=== PATIENT | male | born 1935 | race Asian ===

== ENCOUNTER → 2016-10-02 | Outpatient (CLI) | payer OTHER, MEDICAID ==
[~2016-10-02] MED LIST: OMEP10 PO; SIMV-259 PO; TERA2 PO; TRAM50TA4 PO
== END | disposition home or self-care (01) ==
LOC: RADPV 11:29
PROVIDERS: ATTEND Internal Medicine
DX: I70.0 Atherosclerosis of aorta (principal); J84.89 Other specified interstitial pulmonary diseases
CPT/HCPCS: 71020

== ENCOUNTER 2020-02-09 12:20 | Inpatient (IN) | payer MEDICAID, MEDICARE, OTHER ==
[~2020-02-09] VITALS: Ht 154.9 cm; Wt 49.5 kg
[~2020-02-09 12:20] MED LIST changes: -TERA2 PO; +TERA2CAP10 PO
[2020-02-09 13:19] LABS: BASOPHILS % (AUTO) 0.1 % (0.0-2.0); EOSINOPHILS % (AUTO) 0 % (1.0-6.0); HEMATOCRIT 40.9 % (41-53); HEMOGLOBIN 12.9 g/dL (13.5-17.5); LYMPHOCYTES # (AUTO) 0.5 K/uL (1.0-4.8); LYMPHOCYTES % (AUTO) 5.8 % (22.0-44.0); MEAN CORPUSCULAR HEMOGLOBIN 21.6 pg (26.0-34.0); MEAN CORPUSCULAR HGB CONC 31.6 G/dL (31.0-37.0); MEAN CORPUSCULAR VOLUME 69 fL (80-100); MONOCYTES # (AUTO) 0.6 K/uL (0.1-1.0); MONOCYTES % (AUTO) 6.4 % (2.0-9.0); NEUTROPHILS # (AUTO) 8.4 K/uL (1.8-7.7); PLATELET COUNT (AUTO) 125 K/uL (150-450); RED BLOOD CELL COUNT(AUTO) 5.97 MIL/uL (4.50-5.90); RED CELL DISTRIBUTION WIDTH 16.2 % (11.5-14.5)
[2020-02-09 13:20] LABS: NEUTROPHILS % (AUTO) 87.7 % (40.0-70.0)
[2020-02-09 13:28] LABS: CALCIUM, TOTAL 9.2 mg/dL (8.8-10.5); CREATININE 1.64 mg/dL (0.60-1.30); POTASSIUM 4.3 mmol/L (3.5-5.1)
[2020-02-09 13:34] LABS: ALBUMIN 4.2 g/dL (3.4-5.0); BILIRUBIN,TOTAL 1.2 mg/dL (0.1-1.0)
[2020-02-09] MEDS ORDERED: ACETAMINOPHEN 325 MG TABLET PO ONE (14:15)
[2020-02-09] MEDS ORDERED: ASPIRIN 81 MG CHEWABLE TABLET PO ONE (14:15)
[2020-02-09] MEDS ORDERED: NITROGLYCERIN 2% (1 GM=INCH) PACKET TP ONE (14:30)
[2020-02-09] MEDS ORDERED: HEPARIN SODIUM 25000 UNITS/D5W 250 ML IV PRN (14:39)
[2020-02-09] MEDS ORDERED: METOPROLOL SUCCINATE 25 MG ER TABLET PO ONE (14:45)
[2020-02-09] MEDS ORDERED: ATORVASTATIN CALCIUM 40 MG TABLET PO ONE (14:45)
[2020-02-09] MEDS ORDERED: HEPARIN SODIUM,PORCINE 5,000 UNITS/ML VIAL IVP PRN ×2 (14:45)
[2020-02-09] MEDS ORDERED: HEPARIN SODIUM,PORCINE 5,000 UNITS/ML VIAL IVP ONE (14:45)
[2020-02-09 16:13] LABS: LACTIC ACID 2.1 mmol/L (0.4-2.0)
[2020-02-09 16:25] LABS: C-REACTIVE PROTEIN QUANT 1.67 mg/dL (0.00-0.30); FERRITIN 591 ng/mL (26-388); LACTATE DEHYDROGENASE 280 U/L (85-227)
[2020-02-09 16:31] LABS: CREATINE KINASE, TOTAL ONLY 2231 U/L (39-308); D-DIMER 17.71 mg/L FEU (0.00-0.50)
[2020-02-09 16:33] LABS: PROTHROMBIN TIME 10.2 SEC (9.4-11.6)
[2020-02-09] MEDS ORDERED: SODIUM CHLORIDE 0.9% 1,350 ML IV ONE (16:33)
[2020-02-09] MEDS ORDERED: CefTRIAXone 1 GM/DEXTROSE 50 ML IV ONE (16:45)
[2020-02-09] MEDS ORDERED: AZITHROMYCIN 500 MG/NS 250 ML IV ONE (16:45)
[2020-02-09] MEDS ORDERED: 0.9% SODIUM CHLORIDE 10 ML SYRINGE IVP PRN (18:00)
[2020-02-09] MEDS ORDERED: TERA2CAP PO (18:12)
[2020-02-09] MEDS ORDERED: OMEP40CA12 PO (18:12)
[2020-02-09] MEDS ORDERED: OXYB5 PO (18:12)
[2020-02-09] MEDS ORDERED: LEVO5TAB13 PO (18:12)
[2020-02-10 03:00] LABS: BASOPHILS % (AUTO) 0.2 % (0.0-2.0); EOSINOPHILS % (AUTO) 0.2 % (1.0-6.0); HEMATOCRIT 34.6 % (41-53); HEMOGLOBIN 10.9 g/dL (13.5-17.5); LYMPHOCYTES # (AUTO) 0.9 K/uL (1.0-4.8); LYMPHOCYTES % (AUTO) 11.4 % (22.0-44.0); MEAN CORPUSCULAR HEMOGLOBIN 21.7 pg (26.0-34.0); MEAN CORPUSCULAR HGB CONC 31.5 G/dL (31.0-37.0); MEAN CORPUSCULAR VOLUME 69 fL (80-100); MONOCYTES # (AUTO) 0.6 K/uL (0.1-1.0); MONOCYTES % (AUTO) 8.2 % (2.0-9.0); NEUTROPHILS # (AUTO) 6.3 K/uL (1.8-7.7); RED BLOOD CELL COUNT(AUTO) 5.01 MIL/uL (4.50-5.90); RED CELL DISTRIBUTION WIDTH 16.1 % (11.5-14.5)
[2020-02-10 03:08] LABS: ALBUMIN 3.2 g/dL (3.4-5.0); BILIRUBIN,TOTAL 1.2 mg/dL (0.1-1.0); CALCIUM, TOTAL 8.3 mg/dL (8.8-10.5); CREATININE 1.59 mg/dL (0.60-1.30); POTASSIUM 4.1 mmol/L (3.5-5.1); TOTAL PROTEIN, SERUM 6.3 g/dL (6.4-8.2)
[2020-02-10 03:24] LABS: PLATELET COUNT (AUTO) 93 K/uL (150-450)
[2020-02-10] MEDS ORDERED: ATORVASTATIN CALCIUM 10 MG TABLET PO SCH (09:00)
[2020-02-10] MEDS ORDERED: METOPROLOL SUCCINATE 25 MG ER TABLET PO SCH (09:00)
[2020-02-10] MEDS: ASPIRIN 81 MG CHEWABLE TABLET PO SCH (09:13)
[2020-02-10] MEDS: METOPROLOL SUCCINATE 25 MG ER TABLET PO SCH ×2 (09:14→21:33)
[2020-02-10] MEDS ORDERED: ATORVASTATIN CALCIUM 20 MG TABLET PO ONE (09:15)
[2020-02-10 23:01] VITALS: BP 147/79
[2020-02-11] VITALS (29 sets, daily range): BP systolic 113–169; BP diastolic 59–89
[2020-02-11 06:41] LABS: BASOPHILS % (AUTO) 0.2 % (0.0-2.0); EOSINOPHILS % (AUTO) 0.3 % (1.0-6.0); HEMATOCRIT 36.7 % (41-53); HEMOGLOBIN 11.3 g/dL (13.5-17.5); LYMPHOCYTES # (AUTO) 1.2 K/uL (1.0-4.8); LYMPHOCYTES % (AUTO) 13.4 % (22.0-44.0); MEAN CORPUSCULAR HEMOGLOBIN 21.2 pg (26.0-34.0); MEAN CORPUSCULAR HGB CONC 30.8 G/dL (31.0-37.0); MEAN CORPUSCULAR VOLUME 69 fL (80-100); MONOCYTES % (AUTO) 11.3 % (2.0-9.0); NEUTROPHILS # (AUTO) 6.5 K/uL (1.8-7.7); NEUTROPHILS % (AUTO) 74.8 % (40.0-70.0); PLATELET COUNT (AUTO) 108 K/uL (150-450); RED BLOOD CELL COUNT(AUTO) 5.35 MIL/uL (4.50-5.90); RED CELL DISTRIBUTION WIDTH 16.1 % (11.5-14.5)
[2020-02-11 07:51] LABS: ALBUMIN 3.5 g/dL (3.4-5.0); BILIRUBIN,TOTAL 1.6 mg/dL (0.1-1.0); CALCIUM, TOTAL 8.9 mg/dL (8.8-10.5); CREATININE 1.44 mg/dL (0.60-1.30); MAGNESIUM 1.9 mg/dL (1.80-2.40); TOTAL PROTEIN, SERUM 7.1 g/dL (6.4-8.2)
[2020-02-11] MEDS: OXYBUTYNIN CHLORIDE 5 MG TABLET PO SCH (08:51)
[2020-02-11] MEDS: METOPROLOL SUCCINATE 25 MG ER TABLET PO SCH ×2 (08:51→21:45)
[2020-02-11] MEDS: ATORVASTATIN CALCIUM 20 MG TABLET PO SCH (08:51)
[2020-02-11] MEDS: TERAZOSIN HCL 2 MG CAPSULE PO SCH (08:51)
[2020-02-11] MEDS: ASPIRIN 81 MG CHEWABLE TABLET PO SCH (08:51)
[2020-02-11 15:37] LABS: GLUCOMETER DEV NAME(LOC) AHU.; GLUCOSE,POINT OF CARE 141 MG/DL (70-110)
[2020-02-12] VITALS (35 sets, daily range): BP systolic 96–172; BP diastolic 45–80
[2020-02-12 06:52] LABS: BASOPHILS % (AUTO) 0.3 % (0.0-2.0); EOSINOPHILS % (AUTO) 2.5 % (1.0-6.0); HEMATOCRIT 33.4 % (41-53); HEMOGLOBIN 10.7 g/dL (13.5-17.5); LYMPHOCYTES % (AUTO) 14.5 % (22.0-44.0); MEAN CORPUSCULAR HEMOGLOBIN 21.9 pg (26.0-34.0); MEAN CORPUSCULAR VOLUME 69 fL (80-100); MONOCYTES # (AUTO) 1.3 K/uL (0.1-1.0); MONOCYTES % (AUTO) 18.5 % (2.0-9.0); NEUTROPHILS # (AUTO) 4.5 K/uL (1.8-7.7); NEUTROPHILS % (AUTO) 64.2 % (40.0-70.0); RED BLOOD CELL COUNT(AUTO) 4.87 MIL/uL (4.50-5.90); RED CELL DISTRIBUTION WIDTH 16.3 % (11.5-14.5)
[2020-02-12 07:02] LABS: ALBUMIN 3.4 g/dL (3.4-5.0); BILIRUBIN,TOTAL 1.4 mg/dL (0.1-1.0); CALCIUM, TOTAL 8.5 mg/dL (8.8-10.5); CREATININE 1.35 mg/dL (0.60-1.30); MAGNESIUM 1.9 mg/dL (1.80-2.40); PLATELET COUNT (AUTO) 93 K/uL (150-450); POTASSIUM 3.9 mmol/L (3.5-5.1); TOTAL PROTEIN, SERUM 6.6 g/dL (6.4-8.2)
[2020-02-12] MEDS: ATORVASTATIN CALCIUM 20 MG TABLET PO SCH (09:29)
[2020-02-12] MEDS: ASPIRIN 81 MG CHEWABLE TABLET PO SCH (09:29)
[2020-02-12] MEDS: TERAZOSIN HCL 2 MG CAPSULE PO SCH (09:30)
[2020-02-12] MEDS: METOPROLOL SUCCINATE 25 MG ER TABLET PO SCH ×2 (09:33→20:27)
[2020-02-12] MEDS: AmLODIPine BESYLATE 2.5 MG TABLET PO SCH (09:34)
[2020-02-12] MEDS: OXYBUTYNIN CHLORIDE 5 MG TABLET PO SCH (09:34)
[2020-02-12] MEDS ORDERED: PENTETATE DTPA TC99M/MCL ISOTOPE 1 EA INJ INJ ONE (11:25)
[2020-02-12] MEDS ORDERED: MAA ALBUMIN AGGREGATED TC99M/UD<10MCL ISOTOPE 1 EA INJ INJ ONE (11:45)
[2020-02-12] MEDS ORDERED: HEPARIN SODIUM,PORCINE 1,000 UNITS/ML 10 ML VIAL ONE (14:05)
[2020-02-12] MEDS ORDERED: VERAPAMIL HCL 2.5 MG/ML 2 ML VIAL ONE (14:05)
[2020-02-12] MEDS ORDERED: HEPARIN SODIUM 1000 UNITS/NS 1,000 ML ONE (14:06)
[2020-02-12] MEDS ORDERED: LIDOCAINE/PF 1% 30 ML VIAL ONE (14:06)
[2020-02-12] MEDS ORDERED: TICAGRELOR 90 MG TABLET ONE (15:45)
[2020-02-12] MEDS ORDERED: ASPIRIN 325 MG TABLET ONE (15:46)
[2020-02-12] MEDS ORDERED: EPTIFIBATIDE 2 MG/ML 10 ML VIAL IVP ONE ×2 (15:48→16:15)
[2020-02-12] MEDS ORDERED: IOHEXOL 300 MG/ML 150 ML VIAL ONE (15:48)
[2020-02-12] MEDS ORDERED: ASPIRIN 325 MG TABLET PO ONE (16:15)
[2020-02-12] MEDS ORDERED: HEPARIN SODIUM,PORCINE 1,000 UNITS/ML 10 ML VIAL IVP ONE (16:15)
[2020-02-12] MEDS ORDERED: TICAGRELOR 90 MG TABLET PO ONE (16:15)
[2020-02-12] MEDS: MORPHINE SULFATE 2 MG/ML SYRINGE IVP PRN ×2 (17:56→22:31)
[2020-02-12] MEDS: TICAGRELOR 90 MG TABLET PO SCH (20:26)
[2020-02-13] VITALS (24 sets, daily range): BP systolic 91–133; BP diastolic 47–83
[2020-02-13 06:35] LABS: BASOPHILS % (AUTO) 0.2 % (0.0-2.0); EOSINOPHILS % (AUTO) 0.2 % (1.0-6.0); HEMATOCRIT 29.1 % (41-53); HEMOGLOBIN 9.3 g/dL (13.5-17.5); LYMPHOCYTES # (AUTO) 0.8 K/uL (1.0-4.8); LYMPHOCYTES % (AUTO) 10.8 % (22.0-44.0); MEAN CORPUSCULAR HGB CONC 31.9 G/dL (31.0-37.0); MEAN CORPUSCULAR VOLUME 69 fL (80-100); NEUTROPHILS # (AUTO) 5.8 K/uL (1.8-7.7); NEUTROPHILS % (AUTO) 75.8 % (40.0-70.0); PLATELET COUNT (AUTO) 124 K/uL (150-450); RED BLOOD CELL COUNT(AUTO) 4.23 MIL/uL (4.50-5.90); RED CELL DISTRIBUTION WIDTH 15.7 % (11.5-14.5)
[2020-02-13 07:12] LABS: ALBUMIN 3.2 g/dL (3.4-5.0); BILIRUBIN,TOTAL 1.1 mg/dL (0.1-1.0); CALCIUM, TOTAL 8.4 mg/dL (8.8-10.5); CREATININE 1.99 mg/dL (0.60-1.30); MAGNESIUM 1.9 mg/dL (1.80-2.40); POTASSIUM 4.2 mmol/L (3.5-5.1); TOTAL PROTEIN, SERUM 6.4 g/dL (6.4-8.2)
[2020-02-13] MEDS: METOPROLOL SUCCINATE 25 MG ER TABLET PO SCH ×2 (09:00→20:56)
[2020-02-13] MEDS: AmLODIPine BESYLATE 2.5 MG TABLET PO SCH (09:00)
[2020-02-13] MEDS: TERAZOSIN HCL 2 MG CAPSULE PO SCH (09:00)
[2020-02-13] MEDS: TICAGRELOR 90 MG TABLET PO SCH ×2 (09:26→20:57)
[2020-02-13] MEDS: ASPIRIN 81 MG CHEWABLE TABLET PO SCH (09:26)
[2020-02-13] MEDS: ATORVASTATIN CALCIUM 20 MG TABLET PO SCH (09:27)
[2020-02-13] MEDS: OXYBUTYNIN CHLORIDE 5 MG TABLET PO SCH (09:28)
[2020-02-13] MEDS ORDERED: SODIUM CHLORIDE 0.9% 500 ML IV ONE (10:45)
[2020-02-13 22:47] LABS: APPEARANCE,URINE CLEAR (CLEAR); BILIRUBIN,URINE NEGATIVE (NEGATIVE); GLUCOSE, URINE (UA) NEGATIVE (NEGATIVE); KETONES,URINE NEGATIVE (NEGATIVE); LEUKOCYTE ESTERASE ,URINE NEGATIVE (NEGATIVE); NITRATE,URINE NEGATIVE (NEGATIVE); OCCULT BLOOD,URINE SMALL (NEGATIVE); PROTEIN,URINE TRACE (NEGATIVE); UROBILINOGEN,URINE 0.2 mg/dL (<=1.0)
[2020-02-13 23:14] LABS: BACTERIA,URINE Rare /HPF (None Seen); RBC,URINE 0-2 /HPF (0-2); SQUAMOUS EPITHELIAL CELL,UR Few /LPF (None Seen); WBC,URINE 0-2 /HPF (0-5)
[2020-02-14] VITALS (7 sets, daily range): BP systolic 113–134; BP diastolic 56–74
[2020-02-14 06:35] LABS: BASOPHILS % (AUTO) 0.3 % (0.0-2.0); EOSINOPHILS % (AUTO) 6.4 % (1.0-6.0); HEMATOCRIT 24.3 % (41-53); HEMOGLOBIN 7.9 g/dL (13.5-17.5); LYMPHOCYTES # (AUTO) 0.9 K/uL (1.0-4.8); LYMPHOCYTES % (AUTO) 13.5 % (22.0-44.0); MEAN CORPUSCULAR HEMOGLOBIN 22.2 pg (26.0-34.0); MEAN CORPUSCULAR HGB CONC 32.5 G/dL (31.0-37.0); MEAN CORPUSCULAR VOLUME 68 fL (80-100); MONOCYTES # (AUTO) 1.2 K/uL (0.1-1.0); MONOCYTES % (AUTO) 17.8 % (2.0-9.0); PLATELET COUNT (AUTO) 115 K/uL (150-450); RED BLOOD CELL COUNT(AUTO) 3.56 MIL/uL (4.50-5.90); RED CELL DISTRIBUTION WIDTH 15.7 % (11.5-14.5)
[2020-02-14 06:49] LABS: CALCIUM, TOTAL 8.1 mg/dL (8.8-10.5); CREATININE 1.63 mg/dL (0.60-1.30); POTASSIUM 3.6 mmol/L (3.5-5.1)
[2020-02-14] MEDS: ATORVASTATIN CALCIUM 20 MG TABLET PO SCH (08:55)
[2020-02-14] MEDS: METOPROLOL SUCCINATE 25 MG ER TABLET PO SCH ×2 (08:55→22:45)
[2020-02-14] MEDS: TERAZOSIN HCL 2 MG CAPSULE PO SCH (08:56)
[2020-02-14] MEDS: OXYBUTYNIN CHLORIDE 5 MG TABLET PO SCH (08:56)
[2020-02-14] MEDS: TICAGRELOR 90 MG TABLET PO SCH ×2 (08:56→20:07)
[2020-02-14] MEDS: ASPIRIN 81 MG CHEWABLE TABLET PO SCH (08:56)
[2020-02-14] MEDS: AmLODIPine BESYLATE 2.5 MG TABLET PO SCH (08:56)
[2020-02-14] MEDS: PANTOPRAZOLE SODIUM 40 MG/VIAL IVP SCH ×2 (12:23→20:07)
[2020-02-14 12:26] LABS: % IRON SATURATION 11.4 % (30-44)
[2020-02-15 04:35] VITALS: BP 130/69
[2020-02-15 07:00] LABS: BASOPHILS % (AUTO) 0.5 % (0.0-2.0); HEMATOCRIT 24.5 % (41-53); HEMOGLOBIN 7.9 g/dL (13.5-17.5); LYMPHOCYTES # (AUTO) 0.7 K/uL (1.0-4.8); LYMPHOCYTES % (AUTO) 12.9 % (22.0-44.0); MEAN CORPUSCULAR HEMOGLOBIN 22.1 pg (26.0-34.0); MEAN CORPUSCULAR HGB CONC 32.4 G/dL (31.0-37.0); MEAN CORPUSCULAR VOLUME 68 fL (80-100); NEUTROPHILS # (AUTO) 3.3 K/uL (1.8-7.7); NEUTROPHILS % (AUTO) 62.6 % (40.0-70.0); PLATELET COUNT (AUTO) 119 K/uL (150-450); RED BLOOD CELL COUNT(AUTO) 3.59 MIL/uL (4.50-5.90); RED CELL DISTRIBUTION WIDTH 15.5 % (11.5-14.5)
[2020-02-15 07:16] LABS: CALCIUM, TOTAL 8.2 mg/dL (8.8-10.5); CREATININE 1.37 mg/dL (0.60-1.30); POTASSIUM 3.9 mmol/L (3.5-5.1)
[2020-02-15 07:22] VITALS: BP 133/76
[2020-02-15] MEDS: ATORVASTATIN CALCIUM 20 MG TABLET PO SCH (08:13)
[2020-02-15] MEDS: PANTOPRAZOLE SODIUM 40 MG/VIAL IVP SCH ×2 (08:13→20:56)
[2020-02-15] MEDS: ASPIRIN 81 MG CHEWABLE TABLET PO SCH (08:13)
[2020-02-15] MEDS: TICAGRELOR 90 MG TABLET PO SCH ×2 (08:13→20:55)
[2020-02-15] MEDS: METOPROLOL SUCCINATE 25 MG ER TABLET PO SCH ×2 (08:13→20:55)
[2020-02-15] MEDS: AmLODIPine BESYLATE 2.5 MG TABLET PO SCH (08:13)
[2020-02-15] MEDS: TERAZOSIN HCL 2 MG CAPSULE PO SCH (08:13)
[2020-02-15] MEDS: OXYBUTYNIN CHLORIDE 5 MG TABLET PO SCH (08:25)
[2020-02-15 11:32] VITALS: BP 122/68
[2020-02-15 16:31] VITALS: BP 115/62
[2020-02-15 19:30] VITALS: BP 132/74
[2020-02-16] VITALS (7 sets, daily range): BP systolic 122–145; BP diastolic 64–80
[2020-02-16 06:56] LABS: BASOPHILS % (AUTO) 0.4 % (0.0-2.0); EOSINOPHILS % (AUTO) 5.3 % (1.0-6.0); HEMATOCRIT 25.4 % (41-53); HEMOGLOBIN 8.2 g/dL (13.5-17.5); LYMPHOCYTES # (AUTO) 0.9 K/uL (1.0-4.8); LYMPHOCYTES % (AUTO) 13.4 % (22.0-44.0); MEAN CORPUSCULAR HEMOGLOBIN 22.2 pg (26.0-34.0); MEAN CORPUSCULAR HGB CONC 32.3 G/dL (31.0-37.0); MEAN CORPUSCULAR VOLUME 69 fL (80-100); MONOCYTES # (AUTO) 1.1 K/uL (0.1-1.0); MONOCYTES % (AUTO) 16.8 % (2.0-9.0); NEUTROPHILS # (AUTO) 4.1 K/uL (1.8-7.7); NEUTROPHILS % (AUTO) 64.1 % (40.0-70.0); PLATELET COUNT (AUTO) 135 K/uL (150-450); RED BLOOD CELL COUNT(AUTO) 3.69 MIL/uL (4.50-5.90); RED CELL DISTRIBUTION WIDTH 16.1 % (11.5-14.5)
[2020-02-16 07:02] LABS: CALCIUM, TOTAL 8.2 mg/dL (8.8-10.5); CREATININE 1.4 mg/dL (0.60-1.30); POTASSIUM 3.9 mmol/L (3.5-5.1)
[2020-02-16] MEDS: ATORVASTATIN CALCIUM 20 MG TABLET PO SCH (10:20)
[2020-02-16] MEDS: ASPIRIN 81 MG CHEWABLE TABLET PO SCH (10:20)
[2020-02-16] MEDS: OXYBUTYNIN CHLORIDE 5 MG TABLET PO SCH (10:20)
[2020-02-16] MEDS: AmLODIPine BESYLATE 2.5 MG TABLET PO SCH (10:20)
[2020-02-16] MEDS: TERAZOSIN HCL 2 MG CAPSULE PO SCH (10:20)
[2020-02-16] MEDS: PANTOPRAZOLE SODIUM 40 MG/VIAL IVP SCH ×2 (10:20→20:43)
[2020-02-16] MEDS: TICAGRELOR 90 MG TABLET PO SCH ×2 (10:20→20:43)
[2020-02-16] MEDS: METOPROLOL SUCCINATE 25 MG ER TABLET PO SCH ×2 (10:20→20:43)
[2020-02-16] MEDS ORDERED: BARIUM SULFATE 0.1% SUSPENSION 450 ML BOTTLE ONE (13:20)
[2020-02-17 04:00] VITALS: BP 132/75
[2020-02-17 09:06] VITALS: BP 122/67
[2020-02-17] MEDS: ATORVASTATIN CALCIUM 20 MG TABLET PO SCH (09:08)
[2020-02-17] MEDS: TICAGRELOR 90 MG TABLET PO SCH (09:08)
[2020-02-17] MEDS: PANTOPRAZOLE SODIUM 40 MG/VIAL IVP SCH (09:08)
[2020-02-17] MEDS: OXYBUTYNIN CHLORIDE 5 MG TABLET PO SCH (09:08)
[2020-02-17] MEDS: TERAZOSIN HCL 2 MG CAPSULE PO SCH (09:08)
[2020-02-17] MEDS: ASPIRIN 81 MG CHEWABLE TABLET PO SCH (09:08)
[2020-02-17] MEDS: AmLODIPine BESYLATE 2.5 MG TABLET PO SCH (09:08)
[2020-02-17] MEDS: METOPROLOL SUCCINATE 25 MG ER TABLET PO SCH (09:09)
[2020-02-17 11:32] VITALS: BP 111/58
[2020-02-17 12:20] LABS: HEMATOCRIT 26.8 % (41-53); HEMOGLOBIN 8.6 g/dL (13.5-17.5)
[2020-02-17 15:26] VITALS: BP 137/74
[2020-02-17] MEDS ORDERED: ASPI-728 PO (17:56)
[2020-02-17] MEDS ORDERED: ATOR20TA86 PO (17:57)
[2020-02-17] MEDS ORDERED: AMLO2.5T4 PO (17:57)
[2020-02-17] MEDS ORDERED: METO25XL PO (17:58)
[2020-02-17] MEDS ORDERED: TICA90TA PO (17:58)
== END 2020-02-17 19:50 | disposition home or self-care (01) | DRG 246 ==
LOC: EMS 12:21 → ICUN 02-10 10:38 → 5S 02-13 17:21
PROVIDERS: ADMIT Hospitalist; ATTEND Hospitalist
PROC: 4A023N7 Measurement of Cardiac Sampling and Pressure, Left Heart, Percutaneous Approach (ICD-10-PCS; principal; 2020-02-12)
PROC: 027034Z Dilation of Coronary Artery, One Artery with Drug-eluting Intraluminal Device, Percutaneous Approach (ICD-10-PCS; 2020-02-12)
PROC: B2111ZZ Fluoroscopy of Multiple Coronary Arteries using Low Osmolar Contrast (ICD-10-PCS; 2020-02-12)
PROC: B2151ZZ Fluoroscopy of Left Heart using Low Osmolar Contrast (ICD-10-PCS; 2020-02-12)
PROC: B41F1ZZ Fluoroscopy of Right Lower Extremity Arteries using Low Osmolar Contrast (ICD-10-PCS; 2020-02-12)
DX: I21.4 Non-ST elevation (NSTEMI) myocardial infarction (principal); N17.0 Acute kidney failure with tubular necrosis; D68.59 Other primary thrombophilia; K21.9 Gastro-esophageal reflux disease without esophagitis; N40.0 Benign prostatic hyperplasia without lower urinary tract symptoms; E78.5 Hyperlipidemia, unspecified; I12.9 Hypertensive chronic kidney disease with stage 1 through stage 4 chronic kidney disease, or unspecified chronic kidney disease; N18.9 Chronic kidney disease, unspecified; D63.1 Anemia in chronic kidney disease; D69.6 Thrombocytopenia, unspecified; Z82.49 Family history of ischemic heart disease and other diseases of the circulatory system; Z87.891 Personal history of nicotine dependence; Z20.828 Contact with and (suspected) exposure to other viral communicable diseases; E78.00 Pure hypercholesterolemia, unspecified; R73.9 Hyperglycemia, unspecified; W19.XXXA Unspecified fall, initial encounter; Y93.89 Activity, other specified; Y92.89 Other specified places as the place of occurrence of the external cause; Y99.8 Other external cause status
CPT/HCPCS: 70450; 74176; 78582; 82271; 82728; 83540; 83550; 83605; 83615; 83735; 85014; 85018; 85379; 85384; 86140; 87040; 92920; 92928; 93005; 93306; 99291; A9539; A9540; C9113; G0378; J0456; J0696; J1327; J1644; J2270; J3490; J7030; J7040; Q9967; 36415-L1; 36415-TC; 71045-TC; U0003-CS; Z7610

== ENCOUNTER 2020-03-15 01:16 | Emergency (ER) | payer MEDICARE ==
[~2020-03-15] VITALS: Ht 157.5 cm; Wt 43.2 kg
[~2020-03-15 01:16] MED LIST changes: +AMLO2.5T96 PO; +ASPI-728 PO; +ATOR20TA86 PO; +METO25XL PO; -OMEP10 PO; +OMEP40CA12 PO; +OXYB5 PO; -SIMV-259 PO; +TERA2CAP PO; -TERA2CAP10 PO; +TICA90TA PO; -TRAM50TA4 PO
[2020-03-15 02:08] LABS: BASOPHILS % (AUTO) 0.2 % (0.0-2.0); EOSINOPHILS % (AUTO) 1.2 % (1.0-6.0); HEMATOCRIT 32.2 % (41-53); HEMOGLOBIN 10.1 g/dL (13.5-17.5); LYMPHOCYTES # (AUTO) 0.8 K/uL (1.0-4.8); LYMPHOCYTES % (AUTO) 17.5 % (22.0-44.0); MEAN CORPUSCULAR HEMOGLOBIN 21.7 pg (26.0-34.0); MEAN CORPUSCULAR HGB CONC 31.4 G/dL (31.0-37.0); MEAN CORPUSCULAR VOLUME 69 fL (80-100); MONOCYTES # (AUTO) 0.5 K/uL (0.1-1.0); MONOCYTES % (AUTO) 10.1 % (2.0-9.0); NEUTROPHILS # (AUTO) 3.3 K/uL (1.8-7.7); PLATELET COUNT (AUTO) 157 K/uL (150-450); RED BLOOD CELL COUNT(AUTO) 4.66 MIL/uL (4.50-5.90); RED CELL DISTRIBUTION WIDTH 17.6 % (11.5-14.5)
[2020-03-15 02:12] LABS: CALCIUM, TOTAL 9.5 mg/dL (8.8-10.5); CREATININE 1.76 mg/dL (0.60-1.30); POTASSIUM 4.2 mmol/L (3.5-5.1)
[2020-03-15 02:18] LABS: ALBUMIN 3.4 g/dL (3.4-5.0); BILIRUBIN,TOTAL 0.7 mg/dL (0.1-1.0); TOTAL PROTEIN, SERUM 7.3 g/dL (6.4-8.2)
[2020-03-15 02:25] LABS: PROTHROMBIN TIME 10.4 SEC (9.4-11.6)
[2020-03-15] MEDS ORDERED: SODIUM CHLORIDE 0.9% 1,000 ML IV ONE (02:45)
[2020-03-15 04:09] LABS: APPEARANCE,URINE CLEAR (CLEAR); BILIRUBIN,URINE NEGATIVE (NEGATIVE); GLUCOSE, URINE (UA) NEGATIVE (NEGATIVE); KETONES,URINE NEGATIVE (NEGATIVE); LEUKOCYTE ESTERASE ,URINE NEGATIVE (NEGATIVE); NITRATE,URINE NEGATIVE (NEGATIVE); OCCULT BLOOD,URINE SMALL (NEGATIVE); PH,URINE 5.5 (5.0-8.0); PROTEIN,URINE NEGATIVE (NEGATIVE); UROBILINOGEN,URINE 0.2 mg/dL (<=1.0)
[2020-03-15 04:13] LABS: BACTERIA,URINE Rare /HPF (None Seen); WBC,URINE 0-2 /HPF (0-5)
[2020-03-15 05:40] VITALS: BP 144/65
== END 2020-03-15 06:30 | disposition home or self-care (01) ==
LOC: EMS 01:16
DX: E86.0 Dehydration (principal); I12.9 Hypertensive chronic kidney disease with stage 1 through stage 4 chronic kidney disease, or unspecified chronic kidney disease; N17.9 Acute kidney failure, unspecified; K21.9 Gastro-esophageal reflux disease without esophagitis; E78.00 Pure hypercholesterolemia, unspecified; I10 Essential (primary) hypertension; Z79.82 Long term (current) use of aspirin
CPT/HCPCS: 70450; 87040; 93005; 36415-L1; 36415-TC; 71045-TC

== ENCOUNTER 2020-04-13 00:45 | Emergency (ER) | payer MEDICARE ==
[~2020-04-13] VITALS: Ht 157.5 cm; Wt 43.0 kg
[2020-04-13] MEDS ORDERED: IOVERSOL 350 MG/ML 100 ML VIAL ONE (00:59)
[2020-04-13] MEDS ORDERED: SODIUM CHLORIDE 0.9% 100 ML ONE (00:59)
[2020-04-13 01:03] LABS: BASOPHILS % (AUTO) 0.3 % (0.0-2.0); EOSINOPHILS % (AUTO) 2.1 % (1.0-6.0); HEMATOCRIT 32.1 % (41-53); LYMPHOCYTES # (AUTO) 1.1 K/uL (1.0-4.8); LYMPHOCYTES % (AUTO) 22.1 % (22.0-44.0); MEAN CORPUSCULAR HEMOGLOBIN 21.6 pg (26.0-34.0); MEAN CORPUSCULAR HGB CONC 31.2 G/dL (31.0-37.0); MEAN CORPUSCULAR VOLUME 69 fL (80-100); MONOCYTES # (AUTO) 0.4 K/uL (0.1-1.0); MONOCYTES % (AUTO) 8.8 % (2.0-9.0); NEUTROPHILS # (AUTO) 3.2 K/uL (1.8-7.7); NEUTROPHILS % (AUTO) 66.7 % (40.0-70.0); PLATELET COUNT (AUTO) 145 K/uL (150-450); RED BLOOD CELL COUNT(AUTO) 4.64 MIL/uL (4.50-5.90); RED CELL DISTRIBUTION WIDTH 16.9 % (11.5-14.5)
[2020-04-13 01:11] LABS: CALCIUM, TOTAL 9.4 mg/dL (8.8-10.5); CREATININE 1.89 mg/dL (0.60-1.30); POTASSIUM 4.2 mmol/L (3.5-5.1)
[2020-04-13 01:17] LABS: ALBUMIN 3.5 g/dL (3.4-5.0); BILIRUBIN,TOTAL 0.6 mg/dL (0.1-1.0); PROTHROMBIN TIME 10.7 SEC (9.4-11.6); TOTAL PROTEIN, SERUM 6.8 g/dL (6.4-8.2)
[2020-04-13] MEDS ORDERED: SODIUM CHLORIDE 0.9% 1,000 ML IV ONE (01:30)
[2020-04-13 02:10] LABS: APPEARANCE,URINE CLEAR (CLEAR); BILIRUBIN,URINE NEGATIVE (NEGATIVE); GLUCOSE, URINE (UA) NEGATIVE (NEGATIVE); KETONES,URINE NEGATIVE (NEGATIVE); LEUKOCYTE ESTERASE ,URINE NEGATIVE (NEGATIVE); NITRATE,URINE NEGATIVE (NEGATIVE); OCCULT BLOOD,URINE NEGATIVE (NEGATIVE); PH,URINE 5.5 (5.0-8.0); PROTEIN,URINE NEGATIVE (NEGATIVE); UROBILINOGEN,URINE 0.2 mg/dL (<=1.0)
[2020-04-13 02:18] LABS: BACTERIA,URINE Few /HPF (None Seen); RBC,URINE 0-2 /HPF (0-2); WBC,URINE 0-2 /HPF (0-5)
[2020-04-13 03:50] VITALS: BP 137/79
[2020-04-14] MEDS ORDERED: OMEP20 PO (10:58)
== END 2020-04-13 04:17 | disposition home or self-care (01) ==
LOC: EMS 00:45
DX: I67.1 Cerebral aneurysm, nonruptured (principal); K21.9 Gastro-esophageal reflux disease without esophagitis; E78.00 Pure hypercholesterolemia, unspecified; I12.9 Hypertensive chronic kidney disease with stage 1 through stage 4 chronic kidney disease, or unspecified chronic kidney disease; N18.9 Chronic kidney disease, unspecified; Z79.82 Long term (current) use of aspirin
CPT/HCPCS: 36415; 70450; 70496; 71045; 80053; 81001; 84484; 85025; 85610; 85730; 93005; 96360; 99285; J7050; Q9967; 51701

== ENCOUNTER 2021-03-31 04:32 | Emergency (ER) | payer MEDICARE ==
[~2021-03-31] VITALS: Ht 167.6 cm; Wt 45.8 kg
[~2021-03-31 04:32] MED LIST changes: -AMLO2.5T96 PO; +ASPI-1450 PO; -ASPI-728 PO; +CLOP75TA60 PO; +OMEP20 PO; -OMEP40CA12 PO; -OXYB5 PO; +OXYB5TAB20 PO; -TICA90TA PO
[2021-03-31 05:00] LABS: BASOPHILS % (AUTO) 0.4 % (0.0-2.0); EOSINOPHILS % (AUTO) 5.6 % (1.0-6.0); HEMOGLOBIN 11.1 g/dL (13.5-17.5); LYMPHOCYTES # (AUTO) 1.8 K/uL (1.0-4.8); LYMPHOCYTES % (AUTO) 40.6 % (22.0-44.0); MEAN CORPUSCULAR HEMOGLOBIN 21.7 pg (26.0-34.0); MEAN CORPUSCULAR HGB CONC 30.7 G/dL (31.0-37.0); MEAN CORPUSCULAR VOLUME 71 fL (80-100); MONOCYTES # (AUTO) 0.5 K/uL (0.1-1.0); MONOCYTES % (AUTO) 11.1 % (2.0-9.0); NEUTROPHILS # (AUTO) 1.9 K/uL (1.8-7.7); NEUTROPHILS % (AUTO) 42.3 % (40.0-70.0); PLATELET COUNT (AUTO) 97 K/uL (150-450); RED CELL DISTRIBUTION WIDTH 16.7 % (11.5-14.5)
[2021-03-31 05:03] LABS: CALCIUM, TOTAL 8.8 mg/dL (8.8-10.5); CREATININE 1.6 mg/dL (0.60-1.30); POTASSIUM 4.7 mmol/L (3.5-5.1)
[2021-03-31 05:07] LABS: PROTHROMBIN TIME 10.9 SEC (9.4-11.6)
[2021-03-31 05:09] LABS: ALBUMIN 3.4 g/dL (3.4-5.0); BILIRUBIN,TOTAL 0.6 mg/dL (0.1-1.0); TOTAL PROTEIN, SERUM 6.5 g/dL (6.4-8.2)
[2021-03-31 05:39] LABS: APPEARANCE,URINE CLEAR (CLEAR); BILIRUBIN,URINE NEGATIVE (NEGATIVE); GLUCOSE, URINE (UA) NEGATIVE (NEGATIVE); KETONES,URINE NEGATIVE (NEGATIVE); LEUKOCYTE ESTERASE ,URINE NEGATIVE (NEGATIVE); NITRATE,URINE NEGATIVE (NEGATIVE); OCCULT BLOOD,URINE NEGATIVE (NEGATIVE); PROTEIN,URINE NEGATIVE (NEGATIVE); UROBILINOGEN,URINE 0.2 mg/dL (<=1.0)
[2021-03-31 05:45] LABS: AMPHET/METH SCREEN,URINE NEGATIVE (NEGATIVE); BARBITURATE SCREEN, URINE NEGATIVE (NEGATIVE); BENZODIAZEPINES SCREEN,URINE NEGATIVE (NEGATIVE); CANNABINOID SCREEN,URINE NEGATIVE (NEGATIVE); COCAINE SCREEN,URINE NEGATIVE (NEGATIVE); METHADONE SCREEN, URINE NEGATIVE (NEGATIVE); OPIATE SCREEN,URINE NEGATIVE (NEGATIVE)
[2021-03-31 05:48] LABS: PHENCYCLIDINE SCREEN,URINE NEGATIVE (NEGATIVE)
[2021-03-31 06:35] LABS: RBC,URINE None Seen /HPF (0-2); WBC,URINE 0-2 /HPF (0-5)
[2021-03-31 06:36] LABS: BACTERIA,URINE Rare /HPF (None Seen)
[2021-03-31 06:46] LABS: COVID AG,FIA SOURCE NASOPHARYNGEAL
[2021-03-31 09:27] VITALS: BP 130/74
== END 2021-03-31 10:45 | disposition short-term general hospital (02) ==
LOC: EMS 04:33
DX: I67.1 Cerebral aneurysm, nonruptured (principal); G45.9 Transient cerebral ischemic attack, unspecified; I10 Essential (primary) hypertension; E78.00 Pure hypercholesterolemia, unspecified; K21.9 Gastro-esophageal reflux disease without esophagitis; Z20.822 Contact with and (suspected) exposure to COVID-19; Z79.899 Other long term (current) drug therapy; Z79.82 Long term (current) use of aspirin
CPT/HCPCS: 70496; 71045; 80053; 81001; 82962; 84484; 85025; 85610; 85730; 86850; 86900; 86901; 93005; 99285; 36415-L1; 36415-TC; 70450; 70450-TC